=== PATIENT | male | born 2005 | race Caucasian/White ===

== ENCOUNTER 2025-04-05 00:21 | Emergency (ER) | payer MEDICAID ==
[~2025-04-05] VITALS: Ht 172.7 cm; Wt 65.8 kg
[2025-04-05] MEDS ORDERED: KETOROLAC TROMETHAMINE INJ 30 MG/ML VIAL ONE (01:38)
[2025-04-05] MEDS: KETOROLAC TROMETHAMINE INJ 30 MG/ML VIAL IM ONE (01:42)
[2025-04-05 01:55] LABS: PLATELET COUNT (AUTO) 182 K/uL (150-450); RED BLOOD CELL COUNT(AUTO) 4.71 MIL/uL (4.5-6.0); RED CELL DISTRIBUTION WIDTH 12.8 % (11.5-15.0); WHITE BLOOD COUNT (AUTO) 6.7 K/uL (4.3-11.0)
[2025-04-05 02:11] LABS: ASPARTATE AMINOTRANSFERASE 20.0 U/L (15-37); CALCIUM, SERUM 9.4 mg/dL (8.5-10.1); CREATININE 0.9 mg/dL (0.6-1.3); SODIUM SERUM 139.0 mmol/L (136-145); TOTAL PROTEIN, SERUM 7.5 g/dL (6.4-8.2); UREA NITROGEN, BLOOD 14.0 mg/dL (7-18)
[2025-04-05] MEDS ORDERED: NAPR-1009 PO (03:08)
[2025-04-05 04:24] VITALS: BP 135/75; TEMP 98; O2SAT 99
== END 2025-04-05 04:25 | disposition home or self-care (01) ==
LOC: ER 00:29
DX: M79.662 Pain in left lower leg (principal); M79.605 Pain in left leg
CPT/HCPCS: 99285; 73700; 93971; 96372; 85025; 36415; 80053; J1885

== ENCOUNTER 2025-06-22 19:36 | Emergency (ER) | payer MEDICAID, OTHER ==
[~2025-06-22] VITALS: Ht 170.2 cm; Wt 54.4 kg
[~2025-06-22 19:36] MED LIST: NAPR-1009 PO
[2025-06-22] MEDS: MAG HYDROX/AL HYDROX/SIMETH 30 ML UDC PO ONE (20:07)
[2025-06-22 21:48] VITALS: BP 118/82; TEMP 98.5; O2SAT 100
== END 2025-06-22 21:48 | disposition home or self-care (01) ==
LOC: ER 19:37
DX: R07.89 Other chest pain (principal)
CPT/HCPCS: 71045-TC